=== PATIENT | female | born 2000 | race Caucasian/White ===

== ENCOUNTER 2023-05-09 15:07 | Emergency (ER) | payer MEDICAID ==
[~2023-05-09] VITALS: Ht 177.8 cm; Wt 72.7 kg
[2023-05-09 16:08] LABS: BASOPHILS % (AUTO) 0.8 % (0-1); EOSINOPHILS # (AUTO) 0.2 X10'3 (0-0.9); EOSINOPHILS % (AUTO) 4.4 % (0-6); HEMATOCRIT 36.3 % (35.0-45.0); LYMPHOCYTES # (AUTO) 1.1 X10'3 (1.1-4.8); LYMPHOCYTES % (AUTO) 29.9 % (21-51); MEAN CORPUSCULAR HEMOGLOBIN 27.1 PG (27.0-31.0); MEAN CORPUSCULAR HGB CONC 33.1 g/dL (33.0-36.5); MEAN CORPUSCULAR VOLUME 81.8 FL (78-98); MEAN PLATELET VOLUME 8.1 FL (7.4-10.4); MONOCYTES # (AUTO) 0.3 X10'3 (0-0.9); MONOCYTES % (AUTO) 8.2 % (2-12); NEUTROPHILS # (AUTO) 2.1 X10'3 (1.8-7.7); NEUTROPHILS % (AUTO) 56.7 % (42-75); PLATELET COUNT 313 X10'3 (140-440); RED BLOOD COUNT 4.44 X10'6 (4.20-5.60); RED CELL DISTRIBUTION WIDTH 16.9 % (11.5-14.5); WHITE BLOOD COUNT 3.7 X10'3 (4.5-11.0)
[2023-05-09 16:13] LABS: ALANINE AMINOTRANSFERASE 29 U/L (12-78); ALBUMIN/GLOBULIN RATIO 1.1 (1.1-1.5); ALKALINE PHOSPHATASE 48 IU/L (46-116); ANION GAP 13 (8-16); ASPARTATE AMINO TRANSFERASE 18 U/L (10-37); BILIRUBIN,TOTAL 0.2 MG/DL (0.1-1.0); BLOOD UREA NITROGEN 7 MG/DL (7-18); BUN/CREATININE RATIO 11.3 (10.0-20.0); CALCIUM 8.7 MG/DL (8.5-10.1); CHLORIDE 103 MMOL/L (99-107); CREATININE 0.62 MG/DL (0.40-0.90); GLUCOSE 89 MG/DL (70-104); LIPASE 73 U/L (73-393); POTASSIUM 3.2 MMOL/L (3.5-5.1); SODIUM 140 MMOL/L (135-145); TOTAL CARBON DIOXIDE 23.6 MMOL/L (24-32); TOTAL PROTEIN 7.7 G/DL (6.4-8.2); eGFR > 90 ML/MIN
[2023-05-09] MEDS ORDERED: morphine 4 MG/ML inj SYRINge IM ONE (17:25)
[2023-05-09] MEDS ORDERED: ondansetron 4mg rapidly disintigrating tab PO ONE (17:25)
[2023-05-09 17:56] LABS: URINE HCG NEGATIVE (NEG)
[2023-05-09 18:24] LABS: CLARITY,URINE CLEAR (Clear); COLOR,URINE YELLOW (Yellow); GLUCOSE, URINE NEGATIVE (Neg); KETONES,URINE TRACE mg/dl (Neg); LEUKOCYTE ESTERASE ,URINE NEGATIVE (Neg); NITRITES, URINE NEGATIVE (Neg); OCCULT BLOOD,URINE NEGATIVE (Neg); PH,URINE 6.5 (4.8-8.0); PROTEIN,URINE NEGATIVE (Neg); UROBILINOGEN,URINE 0.2 E.U/dL (0.2-1.0)
[2023-05-09] MEDS ORDERED: potassium Cl 20 mEq SR tablet PO ONE (18:25)
[2023-05-09 18:33] LABS: UA COLLECTION TYPE CLN CATCH MIDSTREAM
[2023-05-09 19:16] VITALS: BP 112/80
== END 2023-05-09 19:22 | disposition home or self-care (01) ==
LOC: ER 15:08
DX: R10.31 Right lower quadrant pain (principal); R50.9 Fever, unspecified; K29.00 Acute gastritis without bleeding; R11.0 Nausea
CPT/HCPCS: 36415; 74176; 76700; 80053; 81003; 81025; 83690; 85025; 99284